=== PATIENT | female | born 1980 | race Two or more races ===

== ENCOUNTER → 2016-06-06 | Outpatient (CLI) | payer SELFPAY ==
[~2016-06-06] MED LIST: CINNAMON PLUS1 EACH PO; LINZESS145 MCG PO; OMEPRAZOLE40 M1 PO; ZOCOR20 MG PO
[2016-06-06 12:58] LABS: CHOLESTEROL 220 mg/dL (0-200); GLUCOSE FASTING 88 mg/dL (70-110); HDL CHOLESTEROL 41 mg/dL (35-95); LDL CHOLESTEROL 121 mg/dL (-130); LDL/HDL RATIO 3 RATIO (0-4); TRIGLYCERIDES 288 mg/dL (10-160)
== END | disposition home or self-care (01) ==
LOC: CLAB 11:21
PROVIDERS: Surgery
DX: E66.01 Morbid (severe) obesity due to excess calories (principal)
CPT/HCPCS: 36415; 80061; 82947

== ENCOUNTER → 2016-06-06 | Outpatient (CLI) | payer SELFPAY | END | disposition home or self-care (01) | LOC: CBAR 08:51 | DX: E66.01 Morbid (severe) obesity due to excess calories (principal) | CPT/HCPCS: 76000 ==